=== PATIENT | female | born 1945 | race Caucasian/White ===

== ENCOUNTER 2019-09-13 12:44 | Outpatient (CLI) | payer MEDICARE, MEDICAID ==
--- NOTE | 2019-09-13 13:16 | ULT ---
EXAM: Right lower extremity venous duplex: Deep veins evaluated with color Doppler, spectral analysis, and compression. INDICATIONS: Right lower extremity edema. FINDINGS: Deep veins interrogated include common femoral vein, femoral vein, popliteal vein, and post erior tibial vein. These veins show normal compression and blood flow. No evidence of DVT. IMPRESSION: Negative Right venous duplex exam.
== END 2019-09-13 12:45 | disposition home or self-care (01) ==
LOC: ULT 12:44
PROVIDERS: ATTEND Nurse Practitioner Family
DX: I10 Essential (primary) hypertension (principal); M25.571 Pain in right ankle and joints of right foot; I87.2 Venous insufficiency (chronic) (peripheral); M79.604 Pain in right leg; E78.2 Mixed hyperlipidemia; I48.20 Chronic atrial fibrillation, unspecified

== ENCOUNTER 2022-04-17 12:37 | Emergency (ER) | payer MEDICAID, MEDICARE, OTHER ==
[2022-04-17 13:34] LABS: #Basophils 0.1 thou/uL (0.0-0.2); #Eosinphils 0.2 thou/uL (0.0-0.7); #Lymphocytes 1.7 thou/uL (1.20-3.40); #Monocytes 0.5 thou/uL (0.11-0.59); #Neutrophils 4.4 thou/uL (1.40-6.50); %Basophils 1.5 % (0.0-1.0); %Eosinophils 3.2 % (0.0-10.0); %Lymphocytes 24.2 % (21.0-51.0); %Monocytes 7.2 % (0.0-10.0); %Neutrophils 63.8 % (42.0-75.0); Hemoglobin 14.5 g/dL (12.0-16.0); Mean Corpuscular HGB CONC 32.6 g/dL (32.0-36.0); Mean Corpuscular Hemoglobin 30.8 pg (27.0-31.0); Mean Corpuscular Volume 94.6 fL (78.0-98.0); Mean Platelet Volume 7.1 fL (7.4-10.4); Platelet Count 187 thou/uL (130-400); RBC Distribution Width 13.2 % (11.5-14.5); Red Blood Cell (RBC) Count 4.69 mill/uL (4.20-5.40); White Blood Cell (WBC) Count 6.8 thou/uL (4.8-10.8)
[2022-04-17 14:02] LABS: ALT (SGPT) 17 U/L (8-55); AST (SGOT) 18 U/L (5-34); Albumin 4.1 g/dL (3.4-4.8); Alkaline Phosphatase 91 U/L (40-110); Anion Gap 16 mmol/L (10-20); BUN (Urea Nitrogen) 8 mg/dL (9.8-20.1); Bilirubin, Total 0.7 mg/dL (0.2-1.2); Calc. Creatinine Clearance 0 mL/min (70-130); Calcium 10.1 mg/dL (7.8-10.44); Carbon Dioxide 25 mmol/L (23-31); Chloride 107 mmol/L (98-107); Globulin 3.5 g/dL (2.4-3.5); Glucose 103 mg/dL (83-110); Protein, Total 7.6 g/dL (5.8-8.1); Sodium 144 mmol/L (136-145)
[2022-04-17] MEDS ORDERED: Acetaminophen 500 MG TAB ONE (17:45)
== END 2022-04-17 18:11 | disposition home or self-care (01) ==
LOC: ERS 12:37
DX: I10 Essential (primary) hypertension (principal); R42 Dizziness and giddiness; R29.700 NIHSS score 0; I48.91 Unspecified atrial fibrillation; E03.9 Hypothyroidism, unspecified; Z85.3 Personal history of malignant neoplasm of breast
CPT/HCPCS: 36415; 70450; 71045; 80053; 84484; 85025; 93005

== ENCOUNTER 2022-05-26 15:41 | Inpatient (IN) | payer OTHER, MEDICAID ==
[~2022-05-26 15:41] MED LIST: Iopamidol-370 76% 500 ML 1 ML ONE
[2022-05-26 16:25] LABS: #Basophils 0.1 thou/uL (0.0-0.2); #Eosinphils 0.2 thou/uL (0.0-0.7); #Lymphocytes 2.4 thou/uL (1.20-3.40); #Monocytes 0.9 thou/uL (0.11-0.59); #Neutrophils 5.2 thou/uL (1.40-6.50); %Basophils 0.8 % (0.0-1.0); %Eosinophils 2.1 % (0.0-10.0); %Monocytes 9.9 % (0.0-10.0); %Neutrophils 60.2 % (42.0-75.0); Mean Corpuscular HGB CONC 33.1 g/dL (32.0-36.0); Mean Corpuscular Hemoglobin 31.3 pg (27.0-31.0); Mean Corpuscular Volume 94.5 fL (78.0-98.0); Mean Platelet Volume 7.5 fL (7.4-10.4); Platelet Count 171 thou/uL (130-400); RBC Distribution Width 13.3 % (11.5-14.5); Red Blood Cell (RBC) Count 4.48 mill/uL (4.20-5.40); White Blood Cell (WBC) Count 8.7 thou/uL (4.8-10.8)
[2022-05-26 16:50] LABS: ALT (SGPT) 14 U/L (8-55); AST (SGOT) 15 U/L (5-34); Alkaline Phosphatase 82 U/L (40-110); Anion Gap 13 mmol/L (10-20); BUN (Urea Nitrogen) 12 mg/dL (9.8-20.1); Bilirubin, Total 0.7 mg/dL (0.2-1.2); Calc. Creatinine Clearance 0 mL/min (70-130); Calcium 10.1 mg/dL (7.8-10.44); Carbon Dioxide 24 mmol/L (23-31); Chloride 105 mmol/L (98-107); Estimated GFR 89; Globulin 3.2 g/dL (2.4-3.5); Glucose 89 mg/dL (83-110); Lipase 23 U/L (8-78); Protein, Total 7.2 g/dL (5.8-8.1); Sodium 138 mmol/L (136-145)
[2022-05-26 17:09] LABS: CKMB 1.7 ng/mL (0-6.6)
[2022-05-26] MEDS ORDERED: Nitroglycerin 0.4 MG TAB (25 Tab Bottle) SL PRN (20:37)
[2022-05-26] MEDS ORDERED: hydrALAZINE 20 MG/ML VIAL SLOW IVP PRN (20:40)
[2022-05-26] MEDS ORDERED: NIFEdipine XL 30 MG TAB PO SCH (21:00)
[2022-05-26] MEDS ORDERED: Morphine 2 MG/ML VIAL SLOW IVP PRN (21:00)
[2022-05-26 21:44] VITALS: BMI 29.6
[2022-05-26] MEDS: Metoprolol Tartrate 25 MG TAB PO SCH (21:51)
[2022-05-26] MEDS: Heparin 5,000 UNITS/ML VIAL SC SCH (21:51)
[2022-05-26 21:59] LABS: Troponin I Less than 0.010 ng/mL (< 0.028)
[2022-05-26] MEDS ORDERED: Acetaminophen 325 MG TAB PO PRN (22:28)
[2022-05-26 23:06] LABS: SARS-CoV-2 NAA Rapid Test Not Detected (NotDetected)
[2022-05-27 00:18] LABS: Troponin I Less than 0.010 ng/mL (< 0.028)
[2022-05-27] MEDS ORDERED: Regadenoson 0.4 MG/5 ML SYRINGE ONE (08:29)
[2022-05-27] MEDS ORDERED: Aspirin Chewable 81 MG TAB PO SCH (09:00)
[2022-05-27 13:49] LABS: #Eosinphils 0.1 thou/uL (0.0-0.7); #Lymphocytes 1.5 thou/uL (1.20-3.40); #Monocytes 0.7 thou/uL (0.11-0.59); %Basophils 0.5 % (0.0-1.0); %Eosinophils 1.8 % (0.0-10.0); %Lymphocytes 18.3 % (21.0-51.0); %Neutrophils 71.4 % (42.0-75.0); Hemoglobin 14.7 g/dL (12.0-16.0); Mean Corpuscular HGB CONC 32.7 g/dL (32.0-36.0); Mean Corpuscular Hemoglobin 30.8 pg (27.0-31.0); Mean Corpuscular Volume 94.3 fL (78.0-98.0); Mean Platelet Volume 7.2 fL (7.4-10.4); Platelet Count 172 thou/uL (130-400); RBC Distribution Width 13.3 % (11.5-14.5); Red Blood Cell (RBC) Count 4.76 mill/uL (4.20-5.40); White Blood Cell (WBC) Count 8.4 thou/uL (4.8-10.8)
[2022-05-27 14:05] LABS: Anion Gap 11 mmol/L (10-20); BUN (Urea Nitrogen) 11 mg/dL (9.8-20.1); Calc. Creatinine Clearance 83 mL/min (70-130); Carbon Dioxide 28 mmol/L (23-31); Cardiac Risk 3.1 (Less than 4.5); Chloride 106 mmol/L (98-107); Cholesterol 194 mg/dl (< 200 Desired); Estimated GFR 80; Glucose 113 mg/dL (83-110); HDL Cholesterol 62 mg/dL (>60 Neg Risk); LDL Cholesterol, Calculated 103 mg/dL; Sodium 141 mmol/L (136-145); Triglycerides 146 mg/dL (Less than 150)
[2022-05-27] MEDS: Metoprolol Tartrate 25 MG TAB PO SCH (15:15)
[2022-05-27] MEDS: Heparin 5,000 UNITS/ML VIAL SC SCH ×2 (15:16→20:18)
[2022-05-27] MEDS ORDERED: Carvedilol 6.25 MG TAB PO SCH (17:00)
[2022-05-28] MEDS: Levothyroxine Sodium 100 MCG TAB PO SCH (04:58)
[2022-05-28 07:05] LABS: Magnesium 1.9 mg/dL (1.6-2.6); Potassium 3.5 mmol/L (3.5-5.1)
[2022-05-28] MEDS: Aspirin 325 mg Enteric Coated Tablet PO SCH (08:35)
[2022-05-28] MEDS: Lisinopril 20 MG TAB PO SCH (08:35)
[2022-05-28] MEDS: Heparin 5,000 UNITS/ML VIAL SC SCH ×2 (08:36→21:47)
[2022-05-28] MEDS ORDERED: Amlodipine 5 MG TAB PO SCH (09:00)
[2022-05-29 05:12] LABS: Anion Gap 15 mmol/L (10-20); BUN (Urea Nitrogen) 17 mg/dL (9.8-20.1); Calc. Creatinine Clearance 98 mL/min (70-130); Calcium 9.4 mg/dL (7.8-10.44); Carbon Dioxide 19 mmol/L (23-31); Chloride 108 mmol/L (98-107); Estimated GFR 90; Glucose 126 mg/dL (83-110); Sodium 138 mmol/L (136-145)
[2022-05-29] MEDS: Levothyroxine Sodium 100 MCG TAB PO SCH (05:57)
[2022-05-29] MEDS: Amlodipine 5 MG TAB PO SCH ×2 (09:06→09:20)
[2022-05-29] MEDS: Aspirin 325 mg Enteric Coated Tablet PO SCH (09:06)
[2022-05-29] MEDS: Lisinopril 20 MG TAB PO SCH (09:07)
[2022-05-29] MEDS: Heparin 5,000 UNITS/ML VIAL SC SCH (09:09)
[2022-05-29] MEDS ORDERED: HYDROcodone/Acetaminophen 5/325 mg Tablet PO PRN (09:16)
[2022-05-29 11:53] VITALS: BP 180/79; TEMP 97.3
== END 2022-05-29 12:50 | disposition home or self-care (01) | DRG 313 ==
LOC: ERS 15:41 → 2SW 20:31 → OBSVTOIN 05-28 16:31
PROVIDERS: ADMIT Hospitalist; ATTEND Hospitalist
DX: R07.89 Other chest pain (principal); I48.21 Permanent atrial fibrillation; I10 Essential (primary) hypertension; E03.9 Hypothyroidism, unspecified; E78.00 Pure hypercholesterolemia, unspecified; I34.0 Nonrheumatic mitral (valve) insufficiency; Z88.0 Allergy status to penicillin; Z90.49 Acquired absence of other specified parts of digestive tract; Z85.3 Personal history of malignant neoplasm of breast
CPT/HCPCS: 36415; 71045; 71275; 78452; 80048; 80053; 80061; 82553; 83690; 83735; 84132; 84443; 84484; 85025; 85379; 93005; 93010; 93017; 93306; 94760; A9500; G0378; J1644; J2785; Q9967; U0002

== ENCOUNTER 2022-06-12 08:15 | Observation (INO) | payer OTHER, MEDICAID ==
[2022-06-12] MEDS ORDERED: Aspirin Chewable 81 MG TAB ONE (08:33)
[2022-06-12] MEDS ORDERED: Nitroglycerin 2% Ointment 1 INCH/1 GM Packet ONE (08:33)
[2022-06-12 09:29] LABS: #Eosinphils 0.2 thou/uL (0.0-0.7); #Lymphocytes 1.3 thou/uL (1.20-3.40); #Monocytes 0.6 thou/uL (0.11-0.59); #Neutrophils 5.4 thou/uL (1.40-6.50); %Basophils 0.1 % (0.0-1.0); %Lymphocytes 17.4 % (21.0-51.0); %Monocytes 7.7 % (0.0-10.0); %Neutrophils 71.8 % (42.0-75.0); Hemoglobin 14.5 g/dL (12.0-16.0); Mean Corpuscular HGB CONC 33.4 g/dL (32.0-36.0); Mean Corpuscular Hemoglobin 31.4 pg (27.0-31.0); Mean Corpuscular Volume 93.9 fL (78.0-98.0); Mean Platelet Volume 7.3 fL (7.4-10.4); Platelet Count 192 thou/uL (130-400); RBC Distribution Width 13.2 % (11.5-14.5); Red Blood Cell (RBC) Count 4.61 mill/uL (4.20-5.40); White Blood Cell (WBC) Count 7.5 thou/uL (4.8-10.8)
[2022-06-12] MEDS ORDERED: Acetaminophen 500 MG TAB ONE (09:40)
[2022-06-12 09:51] LABS: ALT (SGPT) 16 U/L (8-55); AST (SGOT) 22 U/L (5-34); Alkaline Phosphatase 87 U/L (40-110); Anion Gap 15 mmol/L (10-20); BUN (Urea Nitrogen) 13 mg/dL (9.8-20.1); Bilirubin, Total 0.7 mg/dL (0.2-1.2); Calc. Creatinine Clearance 0 mL/min (70-130); Calcium 9.5 mg/dL (7.8-10.44); Carbon Dioxide 23 mmol/L (23-31); Chloride 109 mmol/L (98-107); Estimated GFR 90; Globulin 3.1 g/dL (2.4-3.5); Glucose 117 mg/dL (83-110); Lipase 37 U/L (8-78); Potassium 4.5 mmol/L (3.5-5.1); Protein, Total 7.1 g/dL (5.8-8.1); Sodium 142 mmol/L (136-145)
[2022-06-12] MEDS ORDERED: Nitroglycerin 0.4 MG TAB (25 Tab Bottle) SL PRN (11:06)
[2022-06-12] MEDS ORDERED: Enoxaparin Sodium 80 MG/0.8 ML SYRINGE ONE (11:17)
[2022-06-12 12:54] LABS: Troponin I Less than 0.010 ng/mL (< 0.028)
[2022-06-12] MEDS ORDERED: Ondansetron ODT 4 MG TAB PO PRN (13:40)
[2022-06-12] MEDS ORDERED: Ondansetron PF 4 MG/2 ML Vial IVP PRN (13:40)
[2022-06-12] MEDS ORDERED: Sodium Chloride 0.9% 1,000 ML IV SCH (13:45)
[2022-06-12] MEDS: Acetaminophen 325 MG TAB PO PRN ×2 (14:35→18:56)
[2022-06-12] MEDS: hydrALAZINE 25 MG TAB PO SCH ×2 (14:36→19:51)
[2022-06-12 16:15] LABS: Troponin I Less than 0.010 ng/mL (< 0.028)
[2022-06-12 18:42] VITALS: BMI 29.6
[2022-06-12] MEDS ORDERED: hydrALAZINE 20 MG/ML VIAL SLOW IVP PRN (23:48)
[2022-06-12] MEDS ORDERED: Labetalol HCl 100 MG/20 ML VIAL SLOW IVP PRN (23:48)
[2022-06-13 04:38] LABS: Cardiac Risk 3.8 (Less than 4.5)
[2022-06-13] MEDS: Levothyroxine Sodium 100 MCG TAB PO SCH (04:57)
[2022-06-13] MEDS: Morphine 2 MG/ML VIAL SLOW IVP PRN ×3 (04:58→21:30)
[2022-06-13] MEDS ORDERED: hydrALAZINE 25 MG TAB PO SCH (09:15)
[2022-06-13] MEDS: Enoxaparin Sodium 40 MG/0.4 ML SYRINGE SC SCH (09:32)
[2022-06-13] MEDS: Aspirin Chewable 81 MG TAB PO SCH (09:32)
[2022-06-13] MEDS: hydrALAZINE 25 MG TAB PO SCH ×3 (11:32→19:54)
[2022-06-14] MEDS: Levothyroxine Sodium 100 MCG TAB PO SCH (04:11)
[2022-06-14] MEDS ORDERED: Acetaminophen 325 MG TAB PO PRN (05:34)
[2022-06-14] MEDS: hydrALAZINE 25 MG TAB PO SCH ×2 (08:55→12:41)
[2022-06-14] MEDS: Enoxaparin Sodium 40 MG/0.4 ML SYRINGE SC SCH (08:55)
[2022-06-14] MEDS: Aspirin Chewable 81 MG TAB PO SCH (08:55)
[2022-06-14] MEDS ORDERED: Ondansetron PF 4 MG/2 ML Vial IVP SCH (09:15)
[2022-06-14 11:55] VITALS: BP 120/60; TEMP 97.4
== END 2022-06-14 13:34 | disposition home or self-care (01) ==
LOC: ERS 08:15 → 2NO 12:55
PROVIDERS: ADMIT Hospitalist; ATTEND Hospitalist
DX: R07.89 Other chest pain (principal); I48.0 Paroxysmal atrial fibrillation; I10 Essential (primary) hypertension; E03.9 Hypothyroidism, unspecified; Z85.3 Personal history of malignant neoplasm of breast; Z79.82 Long term (current) use of aspirin; Z79.890 Hormone replacement therapy; Z79.899 Other long term (current) drug therapy; Z88.0 Allergy status to penicillin; Z20.822 Contact with and (suspected) exposure to COVID-19
CPT/HCPCS: 71045; 80053; 80061; 83690; 83880; 84484 ×2; 85025; 85379; 93005; 94760; 96372 ×3; 96374; 96375; 96376; 99285; G0378 ×4; J2270; U0003; U0005; 36415; J0360; J1650; J2405; J7050

== ENCOUNTER 2022-08-16 18:10 | Emergency (ER) | payer OTHER, MEDICAID ==
[2022-08-16] MEDS ORDERED: Boostrix 0.5 ML (Tdap) VIAL (>/=7 yrs of age) ONE (18:32)
[2022-08-16] MEDS ORDERED: Ketorolac Tromethamine 30 MG/ML VIAL ONE ×2 (18:32→18:34)
[2022-08-16] MEDS ORDERED: Bacitracin 1 PK ONE (18:50)
== END 2022-08-16 21:20 | disposition home or self-care (01) ==
LOC: ERS 18:10
DX: S09.90XA Unspecified injury of head, initial encounter (principal); E03.9 Hypothyroidism, unspecified; I10 Essential (primary) hypertension; Z79.899 Other long term (current) drug therapy; Z23 Encounter for immunization
CPT/HCPCS: 70450; 71045; 90471; 90715; 96374; 96375; J1885

== ENCOUNTER 2024-05-22 13:53 | Outpatient (CLI) | payer OTHER, MEDICAID | END 2024-05-22 13:54 | disposition home or self-care (01) | LOC: ULT 13:53 | PROVIDERS: ATTEND Internal Medicine Nephrology | DX: N18.9 Chronic kidney disease, unspecified (principal) | CPT/HCPCS: 76770 ==